=== PATIENT | male | born 1975 | race Caucasian/White ===

== ENCOUNTER 2016-09-27 14:12 | Emergency (ER) | payer MEDICARE, MEDICAID ==
[~2016-09-27] VITALS: Ht 177.8 cm; Wt 91.0 kg
[2016-09-27 15:10] VITALS: BP 98/68
== END 2016-09-27 15:12 | disposition home or self-care (01) ==
LOC: ED 14:14
DX: S80.11XA Contusion of right lower leg, initial encounter (principal); W19.XXXA Unspecified fall, initial encounter; Y93.67 Activity, basketball; Y92.219 Unspecified school as the place of occurrence of the external cause
CPT/HCPCS: 99282

== ENCOUNTER 2016-12-22 09:45 | Outpatient (RCR) | payer MEDICARE, MEDICAID ==
--- NOTE | 2016-12-09 10:33 | PT/OT/ST INITIAL EVALUATION ---
Department of Health and Human Services Form Approved [facility] Care Financing Administration OMB No. [id number] PLAN OF CARE/ASSESSMENT FOR OUTPATIENT REHABILITATION (Complete for Initial Claims Only) 1. PATIENT'S NAME Mitchell Sibley 2. ACC # [id number] 3. HICN NA 4. PROVIDER NO. [id number] 5. TYPE: PT 6. PRIOR HOSPITALIZATION NA 7. PRIMARY DX Right scapular pain 8. SECONDARY DX NA 9. ONSET DATE Two weeks ago 10. REFERRAL DATE Self-referral 11. SOC. DATE 12/08/2016 12. TIME OF EVAL 1:08 p.m. to 1:49 p.m. 12. REFERRING PHYSICIAN Self-referral, PCP Dr. Sandoval 13. CHARGES/UNITS PT evaluation 77716, low complexity Manual therapy 44944, 1 unit Therapeutic exercise 90498, 1 unit 14. G CODES NA 15. PRIOR LEVEL OF FUNCTION; PERTINENT HISTORY (Prior therapy results, reason for referral.) S: Prior to therapy, the patient consented to today's evaluation and treatment. The patient is a 40-year-old male referred to physical therapy as a self-referral to address functional limitations secondary to right scapular pain. The patient's primary care physician is Dr. Neil Sandoval. Current complaint/Mechanism of injury: The patient reports that a couple of weeks ago he slept the wrong way and woke up with his current pain along his right scapula. The patient states that since it began a couple of weeks ago, he is care home better and it feels like a pinched nerve. Functional performance/Prior level of function: The patient reports that he can currently do everything he needs to, but he can feel it. [employer] rates the patient as a 2.2. 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 Therapy History: The patient has previously been seen in therapy for his shoulder, but not within the last several months. Pain level: The patient rates the current pain level as 1/10 and describes the pain as a pinched nerve. It feels cramped like a Charley horse, but it is not constant. Obstacles to delivery of care: None noted. Aggravating factors: Include cold air. Relieving factors: Include taking a shower. Diagnostic testing: None. Past medical history: None. Past surgical history: None. Current medications: A list has been provided including acetaminophen, bacitracin ointment, calamine lotion, hydrogen peroxide 3% solution, Lisinopril HCTZ, loratadine, Milk of magnesia liquid, Montelukast, multivitamin, Clear Lungs, Oreganol, Entsol, pink bismuth suspension, saline mist spray, Tinactin. 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 Personal health rating: Listed as excellent and good. Patient's Goal: The patient's goal for physical therapy is to sleep better and make it better. 16. INITIAL ASSESSMENT/SAFETY PRECAUTIONS/MEDICAL COMPLICATIONS (Level of function at start of care. Be specific, use objective measures, list problems.) O: APPEARANCE AND OBSERVATION: The patient presents to physical therapy with complaints of right scapular pain, which he describes as a pinched nerve. The patient did not have this pain when going to bed one night a couple of weeks ago and woke up with the pain. The patient reports that there is no numbness or tingling in his upper extremities. No pain down into his arm. The patient is right handed and he states that he sleeps on his sides and tosses and turns. 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 The patient is not limited in active range of motion or any muscle testing and is only limited by pain. PALPATION: The patient had no significant tenderness to palpation. SPECIAL TESTS: To rule out cervical spine, gentle cervical compression and distraction in a seated position did not provide any symptoms. RANGE OF MOTION/FLEXIBILITY: Cervical active range of motion is 100% in all planes without pain. Active range of motion of the shoulders left shoulder flexion 166 degrees, abduction 180 degrees, external rotation 81 degrees, internal rotation 53 degrees. Right shoulder flexion 165 degrees, abduction 173 degrees, external rotation 93 degrees, internal rotation 49 degrees. STRENGTH: Manual muscle testing of the bilateral shoulders in all planes 4+/5. TODAY'S TREATMENT: Today's treatment included the initial PT evaluation followed by therapeutic exercise and ASTYM to bilateral cervical spine and right shoulder girdle and scapula. 17. INITIAL POC: (Specify procedures, modalities, short and rn long term care goals) A: The patient presents to physical therapy with a self-referral with complaints of right scapular pain. The patient would benefit from physical therapy in order to improve flexibility of scapula, shoulder and neck muscles. The patient has been shown stretching exercises in order to make ASTYM effective for soft tissue texture. The patient was tight through upper trap, levator muscles, as well as right pec muscle. PROGNOSIS: The patient has a good prognosis for increased active range of motion with decreased pain with regular therapy attendance and compliance with prescribed home exercise program. CONTRAINDICATIONS, PRECAUTIONS AND OBSTACLES TO DELIVERY OF CARE: No contraindications, precautions or obstacles are known at this time. INFORMED CONSENT: The prognosis and goals were discussed with the patient, as well as the expected outcomes and possible risks. The patient agreed to undergo PT evaluation and further treatment. SHORT TERM GOALS: 1. the patient is to have decreased pain of the right scapula and shoulder to less than or equal to 1/10 in 4 weeks in order to return to sleeping through the night. 2. The patient is to rate his improvement at 85% in order to be able to use bilateral upper extremities for reaching and lifting without deviation. 3. The patient is to be independent with a progressive home exercise program. P: Plan to treat this patient 3 times a week for 4 weeks to address functional limitations. Treatment to include modalities for pain, and inflammation, manual therapy interventions, therapeutic exercise, active and passive range of motion, gait training, balance proprioceptive training, neural reeducation, and patient education and prescription of progressive home exercise program as tolerable. 18. FREQUENCY 2 times per week 19. DURATION 4 weeks 20. FUNCTIONAL LEVEL (End of claim period) 21. PHYSICIAN SIGNATURE ? ON FILE OR ENTER HERE: 22. DATE: I certify the need for these services furnished under this plan of care and if for partial hospitalization. 23. CERTIFICATION FROM THROUGH FORM [id number]
[~2016-12-22 09:45] MED LIST: ACET325T38 PO; BACI28.32 TOP; CALA120L5 TOP; CLEAR LUNGS; CPR500T PO; HYDR-3702 PO; Ibuprofen; LISI1TAB8 PO; LORA-714 PO; MNTL10T PO; MULT-954 PO; [UNRECOGNIZED DRUG - CODE] NS; [UNRECOGNIZED DRUG - OTHER]
== END 2017-01-02 12:00 | disposition home or self-care (01) ==
LOC: PT 09:45
PROVIDERS: ATTEND Family Medicine
DX: M25.511 Pain in right shoulder (principal)